=== PATIENT | female | born 1955 | race Caucasian/White ===

== ENCOUNTER → 2017-06-14 | Outpatient (CLI) | payer OTHER ==
[~2017-06-14] MED LIST: CELE400C PO; CYCL5TAB PO; DEXL60CA2 PO; ERGO500017 PO; EZET10TA18 PO; GABA-827 PO; LEVO100T PO; ROSU40TA PO; TEMA30CA PO; TRAM50TA2 PO
[2017-06-14 10:51] LABS: HEMATOCRIT 42.1 % (34.6-47.8); WHITE BLOOD COUNT 5.4 x10^3/uL (3.4-10)
[2017-06-14 10:57] LABS: ASPARTATE AMINO TRANSFERASE 28 U/L (15-37); BLOOD UREA NITROGEN 19 mg/dL (7-18)
[2017-06-14 11:18] LABS: HIV 1&2 ANTIBODY SCREEN Nonreactive (Nonreactive); HIV-1 p24 ANTIGEN Nonreactive (Nonreactive)
== END | disposition home or self-care (01) ==
LOC: STAR 09:10
PROVIDERS: ATTEND Orthopaedic Surgery Orthopaedic Surgery of the Spine
DX: Z01.818 Encounter for other preprocedural examination (principal); M43.16 Spondylolisthesis, lumbar region; M48.06 Spinal stenosis, lumbar region; R79.1 Abnormal coagulation profile; R82.99 Other abnormal findings in urine
CPT/HCPCS: 36415; 71020; 80053; 80074; 81001; 85025; 85610; 85651; 85730; 86703; 87077; 87086; 87186; 87899; 93005; G0435

== ENCOUNTER 2017-06-25 09:13 | Inpatient (IN) | payer OTHER ==
[2017-06-14 09:40] VITALS: BP 130/88
[~2017-06-25] VITALS: Ht 167.6 cm; Wt 98.5 kg
[~2017-06-25 09:13] MED LIST changes: +BACITRACIN 50,000 UNIT ONE; +BUPIVACAINE/PF 0.5% ONE; +EPINEPHRINE 1 MG/ML, 1ML ONE; +FENTANYL PF 100 MCG/2ML ONE; +GENTAMICIN 80 MG/2 ML ONE; +LIDOCAINE/PF 1%, 30ML ONE; +THROMBIN 5,000 UNIT VIAL TP ONE; +VANCOMYCIN 1,000 MG ONE; +morphine SULFATE/PF 1 MG/ML, 10ML ONE
[2017-06-25] MEDS ORDERED: ROCURONIUM 10MG/ML,5ML ONE (10:07)
[2017-06-25] MEDS ORDERED: DEXAMETHASONE 4 MG/ML, 1ML ONE ×3 (10:07→13:04)
[2017-06-25] MEDS ORDERED: KETAMINE 10 MG/ML, 20ML ONE (10:07)
[2017-06-25] MEDS ORDERED: LIDOCAINE 1%, 2ML ONE (10:50)
[2017-06-25] MEDS ORDERED: LACTATED RINGERS 1,000 ML IV SCH (10:51)
[2017-06-25] MEDS ORDERED: LIDOCAINE 1%, 2ML SQ PRN (11:00)
[2017-06-25] MEDS ORDERED: LIDOCAINE-MPF 2% ,5ML ONE (11:30)
[2017-06-25] MEDS ORDERED: PROPOFOL 10 MG/ML, 20ML ONE (11:30)
[2017-06-25] MEDS ORDERED: SUCCINYLCHOLINE 20 MG/ML, 10ML ONE (11:31)
[2017-06-25] MEDS ORDERED: CEFAZOLIN 1,000 MG ONE ×2 (11:33)
[2017-06-25] MEDS ORDERED: PHENYLEPHRINE 10 MG/ML ONE (11:33)
[2017-06-25] MEDS ORDERED: FENTANYL PF 100 MCG/2ML ONE (11:35)
[2017-06-25] MEDS ORDERED: MIDAZOLAM 1 MG/ML, 2ML ONE (11:35)
[2017-06-25] MEDS ORDERED: REMIFENTANIL 2 MG ONE (12:27)
[2017-06-25] MEDS ORDERED: GLYCOPYRROLATE 0.4 MG/2 ML, 2ML ONE (12:59)
[2017-06-25] MEDS ORDERED: OXYcodone 5 MG/5 ML ORAL.SOL UDC PO PRN (14:00)
[2017-06-25] MEDS ORDERED: MEPERIDINE/PF 25MG/0.5ML IVPush PRN (14:00)
[2017-06-25] MEDS ORDERED: FENTANYL PF 100 MCG/2ML IV PRN (14:00)
[2017-06-25] MEDS ORDERED: hydrALAzine 20 MG/ML, 1ML IV PRN (14:00)
[2017-06-25] MEDS ORDERED: HYDROmorphone PCA 30 MG/30 ML IV PRN (14:00)
[2017-06-25] MEDS ORDERED: LORazepam 2 MG/ML, 1ML IVPush PRN (14:00)
[2017-06-25] MEDS ORDERED: LABETALOL 5MG/ML, 20ML IV PRN ×2 (14:00→22:30)
[2017-06-25] MEDS ORDERED: ACETAMINOPHEN 325 MG TABLET PO PRN (14:00)
[2017-06-25] MEDS ORDERED: HYDROmorphone 1 MG/ML, 1ML IV PRN (14:00)
[2017-06-25] MEDS ORDERED: ONDANSETRON 2MG/ML, 2ML IVPush PRN (14:00)
[2017-06-25] MEDS ORDERED: PROMETHAZINE 25 MG/ML, 1ML IV PRN (14:00)
[2017-06-25] MEDS ORDERED: HYDROmorphone 1 MG/ML, 1ML ONE ×3 (14:43→16:39)
[2017-06-25] MEDS ORDERED: ONDANSETRON 2MG/ML, 2ML ONE ×2 (15:35)
[2017-06-25] MEDS ORDERED: HYDROmorphone PCA 30 MG/30 ML ONE (16:40)
[2017-06-25] MEDS ORDERED: DIAZEPAM 5 MG/ML, 2ML IVPush PRN (17:00)
[2017-06-25 20:16] VITALS: BP 95/63
[2017-06-25] MEDS ORDERED: BISACODYL 10 MG SUPP PR PRN (22:30)
[2017-06-25] MEDS ORDERED: PROMETHAZINE 25 MG SUPP PR PRN (22:30)
[2017-06-25] MEDS ORDERED: DIPHENHYDRAMINE 50 MG/ML, 1ML IVPush PRN ×2 (22:30)
[2017-06-25] MEDS ORDERED: OXYcodone IR 5MG TABLET PO PRN (22:30)
[2017-06-25] MEDS ORDERED: MAGNESIUM HYDROXIDE 8%, 30ML UDC PO PRN (22:30)
[2017-06-25] MEDS ORDERED: DIPHENHYDRAMINE 50 MG/ML, 1ML IM PRN (22:30)
[2017-06-25] MEDS ORDERED: METOCLOPRAMIDE 5 MG/ML, 2ML IV PRN (22:30)
[2017-06-25] MEDS ORDERED: DIPHENHYDRAMINE 50 MG CAPSULE PO PRN ×2 (22:30)
[2017-06-25] MEDS ORDERED: PROMETHAZINE 25 MG/ML, 1ML IM PRN (22:30)
[2017-06-25] MEDS ORDERED: EPHEDRINE 50 MG/ML, 1ML IVPush PRN (22:30)
[2017-06-25] MEDS ORDERED: HYDROmorphone 2 MG/ML, 1ML IM PRN (22:30)
[2017-06-25] MEDS ORDERED: NALOXONE 0.4 MG/ML, 1ML IV PRN ×2 (22:30)
[2017-06-25] MEDS ORDERED: DIAZEPAM 5 MG TABLET PO PRN (22:30)
[2017-06-25] MEDS ORDERED: DO NOT GIVE MC SCH (22:30)
[2017-06-25] MEDS ORDERED: DIAZEPAM 5 MG/ML, 2ML IV PRN (22:30)
[2017-06-25] MEDS ORDERED: CEFAZOLIN PMX 1GM/50ML 50 ML IVPB SCH (22:30)
[2017-06-25] MEDS ORDERED: NALOXONE 0.4 MG/ML, 1ML IVPush PRN (22:30)
[2017-06-25] MEDS ORDERED: PHARMACY MAY ADJ FOR RENAL FX MC PRN (23:00)
[2017-06-26] MEDS: PANTOPROZOLE 40MG TABLET PO SCH ×3 (00:15→17:38)
[2017-06-26 00:51] VITALS: BP 94/57
[2017-06-26] MEDS: TEMAZEPAM 30 MG CAPSULE PO SCH ×2 (00:58→21:00)
[2017-06-26] MEDS: METOCLOPRAMIDE 5 MG/ML, 2ML IVPush SCH ×2 (00:59→06:30)
[2017-06-26] MEDS: ATORVASTATIN 80 MG TABLET PO SCH ×2 (00:59→21:34)
[2017-06-26] MEDS: GABAPENTIN 400 MG CAPSULE PO SCH ×2 (00:59→21:34)
[2017-06-26] MEDS: BENADRYL MC SCH ×3 (01:23→14:30)
[2017-06-26] MEDS: D5%-0.9% NACL+KCL 20MEQ 1,000 ML IV SCH ×4 (02:06→22:30)
[2017-06-26 03:16] VITALS: BP 98/60
[2017-06-26] MEDS ORDERED: LABETALOL 5MG/ML, 20ML IV PRN (06:24)
[2017-06-26] MEDS: LEVOTHYROXINE 100 MCG TABLET PO SCH (06:40)
[2017-06-26 07:41] VITALS: BP 91/51
[2017-06-26] MEDS ORDERED: EZETIMIBE 10 MG TABLET PO SCH (09:00)
[2017-06-26] MEDS: SENNA/DOCUSATE TABLET PO SCH (09:38)
[2017-06-26] MEDS: ACETAMINOPHEN 500 MG TABLET PO SCH ×3 (09:39→21:34)
[2017-06-26] MEDS: CEFAZOLIN PMX 1GM/50ML 50 ML IVPB SCH ×2 (09:39→17:38)
[2017-06-26 13:40] VITALS: BP 103/69
[2017-06-26 19:55] VITALS: BP 113/74
[2017-06-26] MEDS: OXYcodone IR 5MG TABLET PO PRN (20:28)
[2017-06-26] MEDS ORDERED: TEMAZEPAM 30 MG CAPSULE PO SCH (21:00)
[2017-06-27] MEDS: OXYcodone IR 5MG TABLET PO PRN ×4 (00:56→14:41)
[2017-06-27] MEDS: CEFAZOLIN PMX 1GM/50ML 50 ML IVPB SCH ×2 (01:27→10:14)
[2017-06-27 04:59] VITALS: BP 94/59
[2017-06-27] MEDS: LEVOTHYROXINE 100 MCG TABLET PO SCH (05:56)
[2017-06-27] MEDS: D5%-0.9% NACL+KCL 20MEQ 1,000 ML IV SCH ×2 (06:30→14:30)
[2017-06-27 07:03] VITALS: BP 95/58
[2017-06-27] MEDS: PANTOPROZOLE 40MG TABLET PO SCH (08:07)
[2017-06-27] MEDS: ACETAMINOPHEN 500 MG TABLET PO SCH (08:08)
[2017-06-27] MEDS: SENNA/DOCUSATE TABLET PO SCH (08:08)
[2017-06-27] MEDS ORDERED: SODIUM CHLORIDE 0.9% 500 ML IV SCH (10:30)
[2017-06-27 14:52] VITALS: BP 98/66
[2017-07-01] MEDS ORDERED: ERGOCALCIFEROL 50,000 UNIT CAPSULE PO SCH (22:29)
== END 2017-06-27 16:33 | disposition home or self-care (01) | DRG 460 ==
LOC: ORIP 10:13 → 4NOR 18:26 → DCLOUNGE 06-27 15:50
PROVIDERS: ADMIT Orthopaedic Surgery Orthopaedic Surgery of the Spine; ATTEND Orthopaedic Surgery Orthopaedic Surgery of the Spine
PROC: 01NB0ZZ Release Lumbar Nerve, Open Approach (ICD-10-PCS; 2017-06-25)
PROC: 4A11X4G Monitoring of Peripheral Nervous Electrical Activity, Intraoperative, External Approach (ICD-10-PCS; 2017-06-25)
PROC: 0SG10AJ Fusion of 2 or more Lumbar Vertebral Joints with Interbody Fusion Device, Posterior Approach, Anterior Column, Open Approach (ICD-10-PCS; principal; 2017-06-25 12:00)
DX: M48.061 Spinal stenosis, lumbar region without neurogenic claudication (principal); E03.9 Hypothyroidism, unspecified; M54.16 Radiculopathy, lumbar region; E78.5 Hyperlipidemia, unspecified; K21.9 Gastro-esophageal reflux disease without esophagitis; M40.299 Other kyphosis, site unspecified; Z96.641 Presence of right artificial hip joint; E66.9 Obesity, unspecified; G89.29 Other chronic pain; Z96.651 Presence of right artificial knee joint; Z79.890 Hormone replacement therapy; Z79.899 Other long term (current) drug therapy; Z82.0 Family history of epilepsy and other diseases of the nervous system; Z82.49 Family history of ischemic heart disease and other diseases of the circulatory system; Z82.5 Family history of asthma and other chronic lower respiratory diseases; Z90.710 Acquired absence of both cervix and uterus; Z98.1 Arthrodesis status; Z68.35 Body mass index [BMI] 35.0-35.9, adult; Z87.440 Personal history of urinary (tract) infections; Z98.891 History of uterine scar from previous surgery; Z80.3 Family history of malignant neoplasm of breast
CPT/HCPCS: 36415; 72100; 86850; 86900; 86923; C1713; J0171; J0690; J1100; J1170; J2250; J2274; J2405; J2704; J3010; J3360; J3370; J3490; C1751; C1762; C1894; J0330; J1580; J2370; J2765; J3480; J7040; J7120

== ENCOUNTER → 2017-09-02 | Outpatient (CLI) | payer OTHER ==
[~2017-09-02] MED LIST changes: -BACITRACIN 50,000 UNIT ONE; -BUPIVACAINE/PF 0.5% ONE; -EPINEPHRINE 1 MG/ML, 1ML ONE; -FENTANYL PF 100 MCG/2ML ONE; -GENTAMICIN 80 MG/2 ML ONE; -LIDOCAINE/PF 1%, 30ML ONE; +REGADENOSON 0.4 MG/5 ML SYRINGE ONE; -THROMBIN 5,000 UNIT VIAL TP ONE; -VANCOMYCIN 1,000 MG ONE; -morphine SULFATE/PF 1 MG/ML, 10ML ONE
== END | disposition home or self-care (01) ==
LOC: CFH 12:33
PROVIDERS: ATTEND Internal Medicine
DX: I25.10 Atherosclerotic heart disease of native coronary artery without angina pectoris (principal); E03.9 Hypothyroidism, unspecified; K21.9 Gastro-esophageal reflux disease without esophagitis
CPT/HCPCS: 78452; 93017; A9502; J2785

== ENCOUNTER 2018-04-22 07:30 | Inpatient (IN) | payer OTHER ==
[~2018-04-22] VITALS: Ht 167.6 cm; Wt 101.6 kg
[~2018-04-22 07:30] MED LIST changes: +MONT10TA9 PO; +PRAM3TAB PO; -REGADENOSON 0.4 MG/5 ML SYRINGE ONE
[2018-05-05] MEDS ORDERED: LACTATED RINGERS 1,000 ML IV SCH (11:42)
[2018-05-05] MEDS ORDERED: BUPIVACAINE/PF 0.5% ONE (12:54)
[2018-05-05] MEDS ORDERED: BACITRACIN 50,000 UNIT ONE (12:55)
[2018-05-05] MEDS ORDERED: GENTAMICIN 80 MG/2 ML ONE (12:55)
[2018-05-05] MEDS ORDERED: EPINEPHRINE 1 MG/ML, 1ML ONE (12:55)
[2018-05-05] MEDS ORDERED: LIDOCAINE/PF 1%, 30ML ONE (12:55)
[2018-05-05] MEDS ORDERED: FENTANYL PF 250 MCG/5ML ONE ×2 (13:04→14:20)
[2018-05-05] MEDS ORDERED: MIDAZOLAM 1 MG/ML, 2ML ONE (13:04)
[2018-05-05] MEDS ORDERED: hydrALAzine 20 MG/ML, 1ML IV PRN (15:30)
[2018-05-05] MEDS ORDERED: DIAZEPAM 5 MG/ML, 2ML IVPush PRN (15:30)
[2018-05-05] MEDS ORDERED: ONDANSETRON 2MG/ML, 2ML IV PRN ×2 (15:30→18:30)
[2018-05-05] MEDS ORDERED: OXYcodone 5 MG/5 ML ORAL.SOL UDC PO PRN (15:30)
[2018-05-05] MEDS ORDERED: LABETALOL 5MG/ML, 20ML IV PRN ×2 (15:30→18:30)
[2018-05-05] MEDS ORDERED: ACETAMINOPHEN 650 MG/20.3 ML UDC ONE (15:40)
[2018-05-05] MEDS ORDERED: FENTANYL PF 100 MCG/2ML ONE (15:40)
[2018-05-05] MEDS ORDERED: OXYcodone 5 MG/5 ML ORAL.SOL UDC ONE (15:41)
[2018-05-05] MEDS: FENTANYL PF 100 MCG/2ML IV PRN ×2 (15:45→15:50)
[2018-05-05] MEDS ORDERED: LABETALOL 5MG/ML, 20ML ONE (16:01)
[2018-05-05] MEDS ORDERED: ONDANSETRON 2MG/ML, 2ML ONE (16:01)
[2018-05-05] MEDS ORDERED: EPHEDRINE 50 MG/ML, 1ML ONE (16:01)
[2018-05-05] MEDS ORDERED: DEXAMETHASONE 4 MG/ML, 5ML ONE (16:01)
[2018-05-05] MEDS ORDERED: CEFAZOLIN 1,000 MG ONE (16:01)
[2018-05-05] MEDS ORDERED: PROPOFOL 10 MG/ML, 20ML ONE (16:01)
[2018-05-05] MEDS ORDERED: HYDROmorphone 2 MG/ML, 1ML ONE (16:03)
[2018-05-05] MEDS: HYDROmorphone 1 MG/ML, 1ML IV PRN ×4 (16:05→16:35)
[2018-05-05] MEDS ORDERED: ACETAMINOPHEN 325 MG TABLET PO PRN (16:30)
[2018-05-05] MEDS ORDERED: HYDROcodone/APAP 5/325 TABLET PO PRN (18:30)
[2018-05-05] MEDS ORDERED: DIAZEPAM 5 MG/ML, 2ML IV PRN (18:30)
[2018-05-05] MEDS ORDERED: DIAZEPAM 5 MG TABLET PO PRN (18:30)
[2018-05-05 19:23] VITALS: BP 80/40
[2018-05-05] MEDS: D5%-0.9% NACL+KCL 20MEQ 1,000 ML IV SCH (19:49)
[2018-05-05 20:00] VITALS: BP 76/43
[2018-05-05] MEDS ORDERED: SODIUM CHLORIDE 0.9%, 500ML IVBOLUS ONE (22:30)
[2018-05-06 00:05] VITALS: BP 76/44
[2018-05-06] MEDS: D5%-0.9% NACL+KCL 20MEQ 1,000 ML IV SCH (03:40)
[2018-05-06 04:20] VITALS: BP 92/58
[2018-05-06] MEDS: OXYcodone/APAP 5/325MG TABLET PO PRN ×2 (04:42→12:28)
[2018-05-06 07:35] VITALS: BP 94/59
[2018-05-06] MEDS ORDERED: SENNA/DOCUSATE TABLET PO SCH (09:00)
[2018-05-06 12:30] VITALS: BP 114/66
== END 2018-05-06 15:50 | disposition home or self-care (01) | DRG 517 ==
LOC: ORIP 05-05 10:51 → 4NOR 05-05 18:03
PROVIDERS: ADMIT Orthopaedic Surgery Orthopaedic Surgery of the Spine; ATTEND Orthopaedic Surgery Orthopaedic Surgery of the Spine
PROC: 4A11X4G Monitoring of Peripheral Nervous Electrical Activity, Intraoperative, External Approach (ICD-10-PCS; 2018-05-05)
PROC: 0SH704Z Insertion of Internal Fixation Device into Right Sacroiliac Joint, Open Approach (ICD-10-PCS; principal; 2018-05-05 07:30)
DX: M53.3 Sacrococcygeal disorders, not elsewhere classified (principal); G89.29 Other chronic pain; I10 Essential (primary) hypertension; K21.9 Gastro-esophageal reflux disease without esophagitis; M47.816 Spondylosis without myelopathy or radiculopathy, lumbar region; E78.5 Hyperlipidemia, unspecified; E66.01 Morbid (severe) obesity due to excess calories; Z96.659 Presence of unspecified artificial knee joint; Z96.641 Presence of right artificial hip joint; Z98.1 Arthrodesis status; Z68.36 Body mass index [BMI] 36.0-36.9, adult
CPT/HCPCS: 72190; 76001; J0171; J0690; J1100; J1170; J2250; J2270; J2405; J2704; J3010; J3490; C1776; J1580; J3480; J7040; J7120

== ENCOUNTER → 2018-11-20 | Outpatient (CLI) | payer OTHER ==
[2018-11-20 13:09] LABS: CALCIUM 9.1 mg/dL (8.5-10.1); CHLORIDE 109 mmol/L (98-107)
[2018-11-20 13:12] LABS: ANION GAP 5 mmol/L (5-15); CREATININE 0.78 mg/dL (0.55-1.02)
== END | disposition home or self-care (01) ==
LOC: CFH 09:56
PROVIDERS: ATTEND Internal Medicine
DX: I25.10 Atherosclerotic heart disease of native coronary artery without angina pectoris (principal); K21.9 Gastro-esophageal reflux disease without esophagitis
CPT/HCPCS: 36415; 80048

== ENCOUNTER → 2019-03-10 | Outpatient (CLI) | payer OTHER | END | disposition home or self-care (01) | LOC: RAD 12:08 | PROVIDERS: ATTEND Internal Medicine | DX: M79.604 Pain in right leg (principal); R06.02 Shortness of breath; F51.01 Primary insomnia; E03.9 Hypothyroidism, unspecified; E78.1 Pure hyperglyceridemia; K21.9 Gastro-esophageal reflux disease without esophagitis; I25.10 Atherosclerotic heart disease of native coronary artery without angina pectoris | CPT/HCPCS: 71045; 78582; 93971; A9540; A9558 ==